=== PATIENT | male | born 1990 | race Caucasian/White ===

== ENCOUNTER 2023-07-27 13:07 | Emergency (ER) | payer OTHER, SELFPAY ==
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
[2023-07-27 13:25] VITALS: BP 136/84; BP 138/92; PULSE 109; PULSE 113; RESP 20; O2SAT 97; O2SAT 99; BMI 31.0
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
[2023-07-27 14:46] LABS: MANUAL DIFF FLAG NO
[2023-07-27 14:49] LABS: Basophils Absolute Auto 0.1 X10*3/uL (0.0-0.2); Basophils Percent Auto 0.6 % (0-2); Eosinophils Absolute Auto 0.1 X10*3/uL (0.0-0.4); Hematocrit 46.2 % (42.0-52.0); Hemoglobin 15.4 g/dl (14.0-18.0); Imm Gran Abs Auto 0.03 X10*3/uL (0.00-0.03); Imm Gran Pct Auto 0.3 % (0.0-0.4); Lymphocytes Absolute Auto 1.2 X10*3/uL (1.2-4.9); Mean Corpuscular HGB Conc 33.3 g/dl (31.0-36.0); Mean Corpuscular Volume 93.1 fL (80.0-98.0); Mean Platelet Volume 9.8 fL (9.4-12.4); Monocytes Absolute Auto 0.7 X10*3/uL (0.1-1.2); Monocytes Percent Auto 5.8 % (2-11); Neutrophils Absolute Auto 9.5 x10*3/uL (2.0-8.3); Neutrophils Percent Auto 82.3 % (45-73); Platelet Count 307 X10*3/uL (160-400); Red Blood Count 4.96 X10*6/uL (4.60-5.80); White Blood Count 11.6 X10*3/uL (4.8-10.8)
[2023-07-27 15:00] LABS: Alanine Aminotransferase 154 U/L (0-40); Albumin Level 4.2 g/dL (3.5-5.0); Alkaline Phosphatase 85 U/L (39-117); Anion Gap 13 (12-20); Aspartate Amino Transferase 79 U/L (5-37); Bilirubin Total 0.5 mg/dL (0.0-1.0); Blood Urea Nitrogen 15 mg/dL (9-16); Calcium 9.3 mg/dL (8.4-10.2); Carbon Dioxide 30 mmol/L (22-29); Chloride 102 mmol/L (96-108); Creatinine Clr Calc Pharmacy 139.5; Estimated Glomerular Filt Rate > 60; Glucose Random 110 mg/dL (60-115); Potassium 4.5 mmol/L (3.3-5.1); Sodium 140 mmol/L (135-145); Total Protein 7.2 g/dL (6.5-8.0)
[2023-07-27 15:06] LABS: INTERNATIONAL NORM RATIO 0.9 (0.9-1.1); Prothrombin Time 10.5 SEC (11.1-13.3)
[2023-07-27] MEDS: iohexoL 350 MG/ML 100 ML INFUS..BTL IV (15:42)
[2023-07-27] MEDS: Ketorolac Tromethamine 30 MG/ML VIAL IM (16:07)
[2023-07-27] MEDS: Diphth,Pertus(ACell),Tet Adult 0.5 ML SYRINGE IM (16:08)
[2023-07-27] MEDS: Clindamycin Phosphate/D5W 600 MG/50 ML PIGGYBACK 100 MG IV (16:08)
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
[2023-07-27 19:17] VITALS: BP 138/92; PULSE 109; RESP 20; TEMP -17.7; TEMP 0; O2SAT 97
--- NOTE | 2023-07-27 19:41 | MHC.EDTECH ---
Addendum entered by Cinthia Cruz 07/27/23 19:58: SECT.21 RECEIVED @1950 Original Note: CALLED [facility] @1749 TO FAX SECT 21 IT WAS MISSING FROM CHART W/ NO ANSWER. CALLED BACK @1747 AND WAS TOLD TO WAIT 15 MINS D/T MED PASS. CALLED BACK @1814. WAS ABLE TO GET IN CONTACT W/ PT'S UNIT. WAS TOLD FAX WOULD BE SENT. CALLED [facility] BACK @191. UNIT SAID THERE WAS ERROR WHEN TRYING TO FAX. I GAVE THEM A DIFFERENT FAX # WELL MY WORK EMAIL TO FAX OR EMAIL SECTION TO AND OF NOW @1946 NO EMAIL OR FAX RECEIVED.
--- NOTE | 2023-07-27 20:26 | PC.NURSE ---
EMS at bedside for transport. This RN calling nurse to nurse.
--- NOTE | 2023-07-27 20:27 | PC.NURSE ---
This RN unable to get through to the adult unit to give nurse to nurse.
== END 2023-07-27 19:00 ==
PROVIDERS: Physician Assistant; Emergency Provider Emergency Medicine; PCP Registered Nurse General Practice
DX: S02.5XXB Fracture of tooth (traumatic), initial encounter for open fracture (principal); S02.2XXA Fracture of nasal bones, initial encounter for closed fracture; S06.0X0A Concussion without loss of consciousness, initial encounter; S00.03XA Contusion of scalp, initial encounter; S01.511A Laceration without foreign body of lip, initial encounter; S01.81XA Laceration without foreign body of other part of head, initial encounter; F31.9 Bipolar disorder, unspecified; F25.9 Schizoaffective disorder, unspecified; Y04.2XXA Assault by strike against or bumped into by another person, initial encounter; Y93.9 Activity, unspecified; Y92.199 Unspecified place in other specified residential institution as the place of occurrence of the external cause; Y99.9 Unspecified external cause status
CPT/HCPCS: 12011; 36415; 70450; 70486; 70491; 71045; 71260; 72125; 74177; 80053; 85025; 85610; 90471; 90715; 96365; 96372; 99284; J0736; J1885; Q9967